=== PATIENT | female | born 1935 | race Caucasian/White ===

== ENCOUNTER → 2018-10-28 | Outpatient (CLI) | payer OTHER | LOC: RAD 14:49 | DX: M19.042 Primary osteoarthritis, left hand (principal) ==

== ENCOUNTER → 2018-12-04 | Outpatient (CLI) | payer OTHER | LOC: NUC 08:32 | DX: M81.0 Age-related osteoporosis without current pathological fracture (principal); M85.89 Other specified disorders of bone density and structure, multiple sites ==